=== PATIENT | female | born 1990 | race Caucasian/White ===

== ENCOUNTER 2021-06-21 22:07 | Emergency (ER) | payer SELFPAY ==
[~2021-06-21] VITALS: Ht 167.6 cm; Wt 74.8 kg
--- NOTE | 2021-06-21 22:30 | NUR ---
PT BIBSELF C/O CO2 LEAK AT HOME X 1 DAY, [place]DER[place], NAUSEOUS, DIZZY. PT SATTING 100% ON R/A; TOLERATING WELL. CONNECTED PT TO POX AND MONITOR.
--- NOTE | 2021-06-21 22:31 | NUR ---
LAW FOX AT PT'S BEDSIDE
--- NOTE | 2021-06-21 22:33 | NUR ---
PT SATTING 100% ON R/A; PER MD ORDER PLACE ON O2 2LPM VIA N/C; TOLERATING WELL AT 100%
--- NOTE | 2021-06-21 22:40 | NUR ---
PER LAW FOX VERBAL ORDERS; PT PLACED ON NRB 15LPM TOLERATING WELL AT 100%. RT AT PT'S BEDSIDE FOP ABG
--- NOTE | 2021-06-21 23:23 | NUR ---
ABG TAKEN & LAW AWARE OF RESULTS WITH NNO
--- NOTE | 2021-06-21 23:34 | NUR ---
Patient discharged to home in stable condition. Written and verbal after care instructions given. Patient verbalizes understanding of instruction. PT ambulatory with a steady gait
[2021-06-21 23:36] VITALS: BP 136/83
[2021-06-21 23:51] LABS: ABG BASE EXCESS -4.2 mmol/L; ABG PH 7.421 (7.350-7.450); ABG PO2 358.8 mmHg (75.0-100.0); COHb 0.3 % (0.5-1.5); MetHb 0.3 % (0.0-1.5); O2Hb 98.7 % (94.0-97.0); SITE, ABG Right Radial; VENT MODE, BG 15LNRB
== END 2021-06-21 23:36 | disposition home or self-care (01) ==
LOC: ER 22:30
DX: T58.8X1A Toxic effect of carbon monoxide from other source, accidental (unintentional), initial encounter (principal); R51.9 Headache, unspecified; R42 Dizziness and giddiness; R11.0 Nausea; Z60.2 Problems related to living alone; Y92.89 Other specified places as the place of occurrence of the external cause
CPT/HCPCS: 36600; 82803-TC